=== PATIENT | female | born 1995 | race Hispanic/Latino ===

== ENCOUNTER 2018-10-26 17:24 | Inpatient (IN) | payer SELFPAY ==
[~2018-10-26] VITALS: Ht 157.5 cm; Wt 72.1 kg
[2018-10-26 18:03] LABS: BASOPHILS % (AUTO) 1.1 % (0.0-5.0); EOSINOPHILS % (AUTO) 1.2 % (0.0-8.0); HEMATOCRIT 23.6 % (36-48); MEAN CORPUSCULAR HEMOGLOBIN 20.6 pg (27.0-33.0); MEAN CORPUSCULAR HGB CONC 30.3 g/dL (32.0-36.0); MEAN CORPUSCULAR VOLUME 67.8 fL (79-99); MONOCYTES % (AUTO) 7.9 % (3.0-13.0); NEUTROPHILS % (AUTO) 46.8 % (40.0-77.0); NUCLEATED RED BLOOD CELLS 0.1 % (0.0-0.19); PLATELET COUNT (AUTO) 363 K/uL (130-400); RED BLOOD CELL COUNT(AUTO) 3.48 MIL/uL (4.00-5.50); WHITE BLOOD COUNT (AUTO) 4.5 K/uL (4.8-10.8)
[2018-10-26 18:07] LABS: APPEARANCE,URINE CLOUDY (CLEAR); BILIRUBIN,URINE NEGATIVE (NEGATIVE); COLOR,URINE ORANGE (YELLOW); GLUCOSE, URINE (UA) NEGATIVE (NEGATIVE); KETONES,URINE NEGATIVE (NEGATIVE); LEUKOCYTE ESTERASE ,URINE TRACE (NEGATIVE); NITRATE,URINE NEGATIVE (NEGATIVE); OCCULT BLOOD,URINE LARGE (NEGATIVE); PH,URINE 7.5 (5.0-8.0); PROTEIN,URINE 30 (NEGATIVE); UROBILINOGEN,URINE 0.2 mg/dL (0.2-1.0)
[2018-10-26 18:36] LABS: BACTERIA,URINE Rare /HPF (None Seen); RBC,URINE TNTC /HPF (0-1); SQUAMOUS EPITHELIAL CELL,UR None Seen /HPF (0-2)
[2018-10-27] VITALS (7 sets, daily range): BP systolic 96–115; BP diastolic 54–71
--- NOTE | 2018-10-27 00:30 | NUR ---
PT. RECEIVED WITH UNIT #1 PRBC INFUSING.
--- NOTE | 2018-10-27 03:40 | NUR ---
BLOOD #1 INFUSED, NO REACTION NOTED.
--- NOTE | 2018-10-27 06:00 | NUR ---
I PAD USED OVERNIGHT WITH SMALL BROWNISH DISCHARGE NOTED; NO ACTIVE BLEEDING NOTED.
--- NOTE | 2018-10-27 07:00 | NUR ---
PRBC #2 INFUSED, PT DENIED REACTION AND NONE NOTED. DR. CARROLL IN PT'S ROOM, NEW ORDERS RECEIVED.
[2018-10-27 07:57] LABS: HEMATOCRIT 29.2 % (36-48); MEAN CORPUSCULAR HEMOGLOBIN 23.5 pg (27.0-33.0); MEAN CORPUSCULAR HGB CONC 31.3 g/dL (32.0-36.0); MEAN CORPUSCULAR VOLUME 75.2 fL (79-99); PLATELET COUNT (AUTO) 292 K/uL (130-400); RED BLOOD CELL COUNT(AUTO) 3.88 MIL/uL (4.00-5.50); RED CELL DISTRIBUTION WIDTH 24.5 % (11.0-15.5); WHITE BLOOD COUNT (AUTO) 4.3 K/uL (4.8-10.8)
[2018-10-27] MEDS ORDERED: ACETAMINOPHEN-CODEINE 300/30MG TAB PO PRN ×2 (08:15)
[2018-10-27] MEDS ORDERED: MORPHINE SULFATE 2 MG/ML 1ML SYG IVP PRN (08:15)
[2018-10-27 08:20] LABS: ALBUMIN 3.5 g/dL (3.5-5.0); BILIRUBIN,TOTAL 0.7 mg/dL (0.2-1.0); CREATININE 0.5 mg/dL (0.5-1.5); POTASSIUM 3.9 mmol/L (3.5-5.1); TOTAL PROTEIN, SERUM 6.7 g/dL (6.0-8.3)
--- NOTE | 2018-10-27 09:00 | NUR ---
SPOTTING PT STATES WHENEVER SHE PRESSES HER BELLY THAT SHE BLEEDS. ASSESS FOR BLEEDING. DIME SIZE BROWNISH DISCHARGE NOTED TO PAD
[2018-10-27] MEDS: FAMOTIDINE/PF 20 MG/2 ML VIAL IV SCH ×2 (09:08→20:46)
--- NOTE | 2018-10-27 10:03 | NUR ---
TEACHING PT INSTRUCTED ON MEDS AND TO CALL FOR ASSISTANCE WHEN NEEDING TO GET UP TO BATHROOM
[2018-10-27 11:32] LABS: AMPHET/METH SCREEN,URINE NEGATIVE (NEGATIVE); BARBITURATE SCREEN, URINE NEGATIVE (NEGATIVE); BENZODIAZEPINES SCREEN,URINE NEGATIVE (NEGATIVE); CANNABINOID SCREEN,URINE NEGATIVE (NEGATIVE); COCAINE SCREEN,URINE NEGATIVE (NEGATIVE); OPIATE SCREEN,URINE NEGATIVE (NEGATIVE); PHENCYCLIDINE SCREEN,URINE NEGATIVE (NEGATIVE)
--- NOTE | 2018-10-27 16:20 | NUR ---
SHOWER PT UP TO SHOWER
[2018-10-28] VITALS (20 sets, daily range): BP systolic 98–118; BP diastolic 43–80
[2018-10-28] MEDS: LACTATED RINGERS 1000ML 1,000 ML IV SCH ×3 (01:00→21:00)
--- NOTE | 2018-10-28 05:30 | NUR ---
pt. up to ayah, assisted by Zora.
--- NOTE | 2018-10-28 07:00 | NUR ---
DR. CARROLL CALLED THE UNIT TO NOTIFY O.R STAFF THAT HE WILL BE THERE AT 2PM, ANDREAS IN EX [id number] NOTIFIED OF 'S REQUEST.
[2018-10-28] MEDS: FAMOTIDINE/PF 20 MG/2 ML VIAL IV SCH ×2 (08:52→21:05)
[2018-10-28] MEDS ORDERED: MIDAZOLAM HCL 1 MG/ML 2ML VIAL ONE (14:33)
[2018-10-28] MEDS ORDERED: DEXAMETHASONE SOD PHOSPHATE 10MG/ML 1ML VIAL ONE (14:33)
[2018-10-28] MEDS ORDERED: SUCCINYLCHOLINE 200MG/10ML SYR ONE (14:33)
[2018-10-28] MEDS ORDERED: LIDOCAINE PF 2% 5ML ABBOJECT ONE (14:33)
[2018-10-28] MEDS ORDERED: ROCURONIUM 10MG/1ML SYR 10 MG/ML ML ONE (14:34)
[2018-10-28] MEDS ORDERED: NEOSTIGMINE 5MG/5ML SYR IV ONE (14:34)
[2018-10-28] MEDS ORDERED: PROPOFOL 10 MG/ML 20ML VIAL IV ONE (14:34)
[2018-10-28] MEDS ORDERED: ONDANSETRON HCL 4 MG/2 ML VIAL ONE ×2 (14:34→17:22)
[2018-10-28] MEDS ORDERED: GLYCOPYRROLATE 1 MG/5 ML SYRINGE ONE (14:34)
[2018-10-28] MEDS ORDERED: FENTANYL CITRATE PF 50 MCG/1 ML 2ML VIAL ONE ×3 (14:35→17:10)
[2018-10-28] MEDS ORDERED: LIDOCAINE HCL 4% LTA SOL 4 ML VIAL ONE (14:36)
[2018-10-28 14:46] LABS: HEMATOCRIT 28.9 % (36-48); MEAN CORPUSCULAR HEMOGLOBIN 23.4 pg (27.0-33.0); MEAN CORPUSCULAR HGB CONC 31.6 g/dL (32.0-36.0); MEAN CORPUSCULAR VOLUME 74.1 fL (79-99); PLATELET COUNT (AUTO) 293 K/uL (130-400); RED CELL DISTRIBUTION WIDTH 25.1 % (11.0-15.5); WHITE BLOOD COUNT (AUTO) 5.1 K/uL (4.8-10.8)
--- NOTE | 2018-10-28 14:55 | NUR ---
PROCEDURE PATIENT LEFT UNIT VIA BED ACCOMPANIED BY KALI DE LA ROSA FOR DILATATION AND CURETTAGE. PATIENT'S MOTHER ACCOMPANIED PATIENT. PATIENT IN STABLE CONDITION.
[2018-10-28] MEDS ORDERED: MISOPROSTOL 200 MCG TABLET ONE (16:13)
[2018-10-28] MEDS ORDERED: NALOXONE HCL 0.4 MG/1 ML ML ONE (16:21)
[2018-10-28] MEDS ORDERED: MEPERIDINE-PF 25 MG/ML SYG ONE (16:37)
--- NOTE | 2018-10-28 17:35 | NUR ---
ARRIVED PATIENT ARRIVED TO UNIT VIA BED FROM PACU. PATIENT AWAKE, ALERT AND ORIENTED. NO COMPLAINTS OF PAIN AT THE MOMENT. CALL LIGHT LEFT IN REACH. ADVISED PATIENT TO CALL WHEN AMBULATING FOR THE FIRST TIME. CALL LIGHT LEFT IN REACH.
[2018-10-29 03:40] VITALS: BP 105/49
--- NOTE | 2018-10-29 06:00 | NUR ---
ONE PAD COUNT NOTED ALL NIGHT WITH SCANT PINKISH DISCHARGE. PT. DENIED PAIN AND DISCOMFORT ALL SHIFT.
--- NOTE | 2018-10-29 07:35 | NUR ---
MD MIRANDA ROUNDING ON PATIENT. DISCHARGE POC DISCUSSED. QUESTIONS INVITED AND ANSWERED.
[2018-10-29 07:52] VITALS: BP 105/64
--- NOTE | 2018-10-29 10:20 | NUR ---
DISCHARGE PATIENT LEFT UNIT VIA WHEELCHAIR WITH BELONGINGS IN HAND. PERSONAL VEHICLE USED FOR TRANSPORTATION ACCOMPANIED BY FAMILY. NO COMPLAINTS OR CONCERNS ADDRESSED FROM PATIENT ON DISCHARGE.
== END 2018-10-29 10:20 | disposition home or self-care (01) | DRG 770 ==
LOC: EDH 17:24 → EDHIP 17:25 → OBSVTOIN 17:25 → WSH 10-27 00:30
PROVIDERS: ADMIT Obstetrics & Gynecology; ATTEND Obstetrics & Gynecology
PROC: 30233N1 Transfusion of Nonautologous Red Blood Cells into Peripheral Vein, Percutaneous Approach (ICD-10-PCS; 2018-10-28)
PROC: 3E02340 Introduction of Influenza Vaccine into Muscle, Percutaneous Approach (ICD-10-PCS; 2018-10-28)
PROC: 10D17ZZ Extraction of Products of Conception, Retained, Via Natural or Artificial Opening (ICD-10-PCS; principal; 2018-10-28 15:35)
DX: O03.1 Delayed or excessive hemorrhage following incomplete spontaneous abortion (principal); Z23 Encounter for immunization
CPT/HCPCS: 36415; 76856; 80053; 80305; 81001; 84702; 85025; 85027; 86850; 86900; 86901; 86922; 99291; A4351; G0378; J0330; J1100; J2001; J2175; J2250; J2310; J2405; J2704; J2710; J3010; J3490; J7030; P9016; Q2035

== ENCOUNTER 2019-06-11 12:09 | Emergency (ER) | payer MEDICAID ==
[2019-06-11 12:40] LABS: BASOPHILS % (AUTO) 0.8 % (0.0-5.0); EOSINOPHILS % (AUTO) 0.3 % (0.0-8.0); LYMPHOCYTES % (AUTO) 17.3 % (21.0-51.0); MEAN CORPUSCULAR HEMOGLOBIN 27.5 pg (27.0-33.0); MEAN CORPUSCULAR HGB CONC 33.6 g/dL (32.0-36.0); MEAN CORPUSCULAR VOLUME 81.8 fL (79-99); NEUTROPHILS % (AUTO) 75.6 % (40.0-77.0); PLATELET COUNT (AUTO) 219 K/uL (130-400); RED BLOOD CELL COUNT(AUTO) 4.04 MIL/uL (4.00-5.50); RED CELL DISTRIBUTION WIDTH 14.8 % (11.0-15.5); WHITE BLOOD COUNT (AUTO) 6.5 K/uL (4.8-10.8)
[2019-06-11 12:41] LABS: APPEARANCE,URINE Clear (CLEAR); BILIRUBIN,URINE Negative (NEGATIVE); COLOR,URINE Yellow (YELLOW); GLUCOSE, URINE (UA) Negative (NEGATIVE); KETONES,URINE Negative (NEGATIVE); LEUKOCYTE ESTERASE ,URINE Large (NEGATIVE); NITRATE,URINE Negative (NEGATIVE); OCCULT BLOOD,URINE Negative (NEGATIVE); PH,URINE 8.5 (5.0-8.0); PROTEIN,URINE Negative (NEGATIVE); UROBILINOGEN,URINE 0.2 mg/dL (0.2-1.0)
[2019-06-11 12:51] LABS: BACTERIA,URINE Rare /HPF (None Seen); RBC,URINE 0-1 /HPF (0-1)
[2019-06-11 12:52] LABS: MUCUS,URINE Rare LPF (None Seen); SQUAMOUS EPITHELIAL CELL,UR Few /HPF (0-2)
[2019-06-11 12:53] LABS: CREATININE 0.6 mg/dL (0.5-1.5); POTASSIUM 3.5 mmol/L (3.5-5.1)
[2019-06-11 13:00] LABS: ALBUMIN 3.4 g/dL (3.5-5.0); BILIRUBIN,TOTAL 0.2 mg/dL (0.2-1.0)
== END 2019-06-11 14:01 | disposition home or self-care (01) ==
LOC: EDH 12:09
DX: O23.41 Unspecified infection of urinary tract in pregnancy, first trimester (principal); Z3A.09 9 weeks gestation of pregnancy
CPT/HCPCS: 36415 ×2; 76817; 80053; 81001; 84702 ×2; 85025 ×2; 86850; 86900 ×2; 86901 ×2; 99284; 99285; J7030

== ENCOUNTER 2019-06-11 19:54 | Emergency (ER) | payer MEDICAID ==
[2019-06-11 20:22] LABS: BASOPHILS % (AUTO) 0.5 % (0.0-5.0); EOSINOPHILS % (AUTO) 0.5 % (0.0-8.0); HEMATOCRIT 33.6 % (36-48); LYMPHOCYTES % (AUTO) 17.3 % (21.0-51.0); MEAN CORPUSCULAR HGB CONC 34.5 g/dL (32.0-36.0); MEAN CORPUSCULAR VOLUME 81.2 fL (79-99); MONOCYTES % (AUTO) 5.8 % (3.0-13.0); NEUTROPHILS % (AUTO) 75.9 % (40.0-77.0); PLATELET COUNT (AUTO) 240 K/uL (130-400); RED BLOOD CELL COUNT(AUTO) 4.13 MIL/uL (4.00-5.50); RED CELL DISTRIBUTION WIDTH 14.8 % (11.0-15.5)
[2019-06-11] MEDS ORDERED: SODIUM CHLORIDE 0.9% 1000ML 1,000 ML IV ONE (20:25)
== END 2019-06-11 21:14 | disposition home or self-care (01) ==
LOC: EDH 19:54 → EEVIPCON 19:54 → EDH 21:14
DX: O20.0 Threatened abortion (principal); Z3A.09 9 weeks gestation of pregnancy
CPT/HCPCS: 36415; 84702; 85025; 86850; 86900; 86901; 99284; J7030

== ENCOUNTER 2019-07-06 17:12 | Emergency (ER) | payer MEDICAID ==
[2019-07-06 18:24] LABS: APPEARANCE,URINE Clear (CLEAR); BILIRUBIN,URINE Negative (NEGATIVE); COLOR,URINE Yellow (YELLOW); GLUCOSE, URINE (UA) Negative (NEGATIVE); KETONES,URINE Negative (NEGATIVE); LEUKOCYTE ESTERASE ,URINE Small (NEGATIVE); NITRATE,URINE Negative (NEGATIVE); OCCULT BLOOD,URINE Negative (NEGATIVE); PROTEIN,URINE Negative (NEGATIVE)
[2019-07-06 18:37] LABS: MUCUS,URINE Moderate LPF (None Seen); SQUAMOUS EPITHELIAL CELL,UR 30-50 /HPF (0-2)
[2019-07-06 18:42] LABS: BACTERIA,URINE Few /HPF (None Seen); RBC,URINE 0-1 /HPF (0-1)
== END 2019-07-06 19:26 | disposition home or self-care (01) ==
LOC: EDH 17:12
DX: O20.0 Threatened abortion (principal); O23.41 Unspecified infection of urinary tract in pregnancy, first trimester; Z3A.11 11 weeks gestation of pregnancy
CPT/HCPCS: 81001

== ENCOUNTER 2019-10-22 21:59 | Observation (INO) | payer MEDICAID ==
[2019-10-22 23:32] LABS: APPEARANCE,URINE Clear (CLEAR); BILIRUBIN,URINE Negative (NEGATIVE); COLOR,URINE Yellow (YELLOW); GLUCOSE, URINE (UA) Negative (NEGATIVE); KETONES,URINE Negative (NEGATIVE); LEUKOCYTE ESTERASE ,URINE Moderate (NEGATIVE); NITRATE,URINE Negative (NEGATIVE); OCCULT BLOOD,URINE Negative (NEGATIVE); PH,URINE 7.5 (5.0-8.0); PROTEIN,URINE Negative (NEGATIVE); UROBILINOGEN,URINE 0.2 mg/dL (0.2-1.0)
[2019-10-22 23:49] LABS: BACTERIA,URINE Few /HPF (None Seen); RBC,URINE 0-1 /HPF (0-1); SQUAMOUS EPITHELIAL CELL,UR Moderate /HPF (0-2)
== END 2019-10-23 00:20 | disposition home or self-care (01) ==
LOC: EDH 21:59 → LDH 22:00
PROVIDERS: ADMIT Obstetrics & Gynecology; ATTEND Obstetrics & Gynecology
DX: O26.892 Other specified pregnancy related conditions, second trimester (principal); R10.9 Unspecified abdominal pain; N89.8 Other specified noninflammatory disorders of vagina; Z3A.27 27 weeks gestation of pregnancy
CPT/HCPCS: 81001; 99284; G0378

== ENCOUNTER 2020-01-07 17:45 | Inpatient (IN) | payer MEDICAID ==
[2020-01-07 18:41] LABS: BASOPHILS % (AUTO) 0.4 % (0.0-5.0); EOSINOPHILS % (AUTO) 0.1 % (0.0-8.0); HEMATOCRIT 32.3 % (36-48); LYMPHOCYTES % (AUTO) 11.2 % (21.0-51.0); MEAN CORPUSCULAR HEMOGLOBIN 20.8 pg (27.0-33.0); MEAN CORPUSCULAR HGB CONC 29.1 g/dL (32.0-36.0); MEAN CORPUSCULAR VOLUME 71.3 fL (79-99); MONOCYTES % (AUTO) 4.3 % (3.0-13.0); NEUTROPHILS % (AUTO) 83.3 % (40.0-77.0); PLATELET COUNT (AUTO) 330 K/uL (130-400); RED BLOOD CELL COUNT(AUTO) 4.53 MIL/uL (4.00-5.50); RED CELL DISTRIBUTION WIDTH 17.2 % (11.0-15.5); WHITE BLOOD COUNT (AUTO) 10.7 K/uL (4.8-10.8)
[2020-01-07] MEDS ORDERED: DIPH,PERTUSS(ACELL),TET VAC/PF 0.5 ML VIAL IM PRN (18:45)
[2020-01-07] MEDS ORDERED: MEASLES/MUMPS/RUBELLA VACCINE, LIVE 0.5 ML/VIAL SQ PRN (18:45)
[2020-01-07] MEDS ORDERED: ACETAMINOPHEN 325 MG TAB PO PRN (18:45)
[2020-01-07] MEDS ORDERED: LANOLIN 30GM OINTMENT TP PRN (18:45)
[2020-01-07] MEDS ORDERED: BENZOCAINE/LANOLIN/ALOE VERA 60 ML AEROSOL TP PRN (18:45)
[2020-01-07] MEDS ORDERED: WITCH HAZEL 1 PAD TP PRN (18:45)
[2020-01-07] MEDS ORDERED: ACETAMINOPHEN-CODEINE 300/30MG TAB PO PRN (18:45)
[2020-01-07 18:46] LABS: INR 0.9 (0.85-1.15); PARTIAL THROMBOPLASTIN TIME 24.5 SEC (26.3-35.5); PROTHROMBIN TIME 9.8 SEC (9.6-11.6)
[2020-01-07 18:47] LABS: ALBUMIN 2.8 g/dL (3.5-5.0); BILIRUBIN,TOTAL 0.7 mg/dL (0.2-1.0); CREATININE 0.7 mg/dL (0.5-1.5); TOTAL PROTEIN, SERUM 6.8 g/dL (6.0-8.3)
[2020-01-07] MEDS: IBUPROFEN 600 MG TABLET PO PRN (19:48)
--- NOTE | 2020-01-07 20:55 | NUR ---
Patient received from Labor & Delivery report received from Seng Delarosa RN; Patient came in via wheelchair accompanied by Seng Delarosa RN . She has an IV of LR with 20 units Pitocin infusing well. Fundus firm one finger below the umbilicus with small Lochia Rubra. Patient oriented to room, call light given. Plan of care discussed with patient verbalizes understanding.
[2020-01-07] MEDS: DOCUSATE SODIUM 100 MG CAP PO SCH (21:29)
[2020-01-07 23:51] VITALS: BP 120/63
[2020-01-08 02:48] LABS: AMPHET/METH SCREEN,URINE NEGATIVE (NEGATIVE); BARBITURATE SCREEN, URINE NEGATIVE (NEGATIVE); BENZODIAZEPINES SCREEN,URINE NEGATIVE (NEGATIVE); CANNABINOID SCREEN,URINE NEGATIVE (NEGATIVE); COCAINE SCREEN,URINE POSITIVE (NEGATIVE); OPIATE SCREEN,URINE NEGATIVE (NEGATIVE); PHENCYCLIDINE SCREEN,URINE NEGATIVE (NEGATIVE)
[2020-01-08 02:55] VITALS: BP 125/59
[2020-01-08] MEDS: IBUPROFEN 600 MG TABLET PO PRN ×2 (04:19→09:28)
[2020-01-08 06:36] LABS: HEMATOCRIT 26.7 % (36-48); MEAN CORPUSCULAR HEMOGLOBIN 20.7 pg (27.0-33.0); MEAN CORPUSCULAR HGB CONC 28.8 g/dL (32.0-36.0); MEAN CORPUSCULAR VOLUME 71.8 fL (79-99); RED BLOOD CELL COUNT(AUTO) 3.72 MIL/uL (4.00-5.50); RED CELL DISTRIBUTION WIDTH 17.3 % (11.0-15.5); WHITE BLOOD COUNT (AUTO) 9.5 K/uL (4.8-10.8)
[2020-01-08 07:18] VITALS: BP 119/72
--- NOTE | 2020-01-08 09:10 | NUR ---
DR. CLARK ROUNDED AND DISCHARGED PATIENT TO HOME. PATIENT INFORMED LOUIEMANAGER WOULD BE COMING BY TO SEE HER BEFORE ACTUAL DISCHARGE. DON LEARY CALLED AND WAS NOTIFIED OF CASE. INDICATED WOULD BE COMING TO SEE PATIENT THIS MORNING.
--- NOTE | 2020-01-08 09:10 | NUR ---
DR. CLARK ROUNDED AND DISCHARGED PT TO HOME, BABY WILL NOT BE DISCHARGED DUE TO POSITIVE UDS.
[2020-01-08] MEDS: DOCUSATE SODIUM 100 MG CAP PO SCH (09:26)
--- NOTE | 2020-01-08 09:30 | NUR ---
DEEPTI BARLOW, STOCK TRACER IN TO SEE PATIENT AND INDICATED CPS WOULD BE CALLING AND FOR FOLLOW UP ON PATIENT.
--- NOTE | 2020-01-08 11:00 | NUR ---
ARMIDA LEARYAGER IN TO SEE PATIENT AND WILL NOTIFY NURSE WHEN DISCHARGE PLAN ON BABY IS DONE.
[2020-01-08 11:23] VITALS: BP 136/81
--- NOTE | 2020-01-08 11:33 | NUR ---
cm note called by primary nurse that pt with positive cocaine uds, and baby positive cocaine as well. met with patient and she request that boyfriend remain in room for interview. boyfriend is Alexis marquis. pt states that she resides at home with boyfriend and 3 other children, Gibran ramos 7 yo, Kiera lorenzo 4 yo, and Elmo Lorenzo Jr, yo. she states she is a , and that her boyfriend Alexis is father of this baby girl. States currently the children are with her mother Becky wynn ph# [phone] and her mother is caring for them temporarily. she states she did get care with Dr cummings since approx 2 months gestation. states she has never used drugs in the past, up until a couple of days ago, states she was feeling upset due to she found out, her boyfriend was cheating on her. she went to visit a friend that she confided in, and she offered cocaine. states was a one time thing. and does not plan to use any drugs of any kind in the future. Referral to CPS was called in to [facility] hotline, spoke to Scottie CPS ID #[id number]. and he provided a ref# [id number]. [facility] pt is priority 1 and will make referral to front office [employer]. updated primary nurse on above. Addendum: 01/08/20 at 1147 by AQUILES BARLOW Amended: Links added.
--- NOTE | 2020-01-08 13:30 | NUR ---
VICKI GONCALVES, CPS WORKER IN TO SEE PATIENT AND LEFT AFTER INTERVIEWING PATIENT. INDICATED SHE WOULD RETURN IN A COUPLE OF HOURS FOR DISCHARGE PLAN ON BABY.
--- NOTE | 2020-01-08 16:00 | NUR ---
CM NOTE per isac primary nurse, CPS worker here to interview pt, Naheed Maritnez cell [phone].
[2020-01-08 16:08] VITALS: BP 131/83
--- NOTE | 2020-01-08 18:05 | NUR ---
CPS BACK IN ROOM FOR DISCHARGE PLAN ON BABY. WRITTEN PLAN OBTAINED AND COPY GIVEN TO NURSERY.
--- NOTE | 2020-01-08 18:15 | NUR ---
DISCHARGE INSTRUCTIONS GIVEN AND SCRIPT FOR MOTRIN GIVEN TO PATIENT AND INSTRUCTED ON DOSAGE AND FREQUENCY. PATIENT VERBALIZED UNDERSTANDING INSTRUCTIONS GIVEN. WILL GO VISIT BABY BEFORE SHE GOES HOME.
--- NOTE | 2020-01-08 19:30 | NUR ---
PATIENT WAS TAKEN VIA W/C TO FAMILY VEHICLE AND WAS DISCHARGE TO HOME WITHOUT BABY.
[2020-01-10 08:11] LABS: HEPATITIS Bs ANTIGEN SCREEN P Negative (Negative)
== END 2020-01-08 19:25 | disposition home or self-care (01) | DRG 561 ==
LOC: EDH 17:45 → OBSVTOIN 18:04 → INTOOBSV 18:04 → EDHIP 18:04 → LDH 18:07 → WSH 20:55
PROVIDERS: ADMIT Obstetrics & Gynecology; ATTEND Obstetrics & Gynecology
PROC: 10E0XZZ Delivery of Products of Conception, External Approach (ICD-10-PCS; principal; 2020-01-07)
PROC: 3E0R3BZ Introduction of Anesthetic Agent into Spinal Canal, Percutaneous Approach (ICD-10-PCS; 2020-01-07)
PROC: 00HU33Z Insertion of Infusion Device into Spinal Canal, Percutaneous Approach (ICD-10-PCS; 2020-01-07)
PROC: 3E0234Z Introduction of Serum, Toxoid and Vaccine into Muscle, Percutaneous Approach (ICD-10-PCS; 2020-01-07)
PROC: 3E0134Z Introduction of Serum, Toxoid and Vaccine into Subcutaneous Tissue, Percutaneous Approach (ICD-10-PCS; 2020-01-07)
DX: Z39.0 Encounter for care and examination of mother immediately after delivery (principal); Z23 Encounter for immunization
CPT/HCPCS: 36415; 80053; 80305; 85025; 85027; 85610; 85730; 86592; 86701; 86850; 86900; 86901; 87340; 87390; 90715; G0378